=== PATIENT | male | born 1980 | race Caucasian/White ===

== ENCOUNTER 2021-03-01 22:30 | Emergency (ER) | payer MEDICAID ==
[~2021-03-01] VITALS: Ht 170.2 cm; Wt 72.7 kg
[2021-03-02 01:33] LABS: BASOPHILS # (AUTO) 0.1 X10'3 (0-0.2); BASOPHILS % (AUTO) 0.9 % (0-1); EOSINOPHILS # (AUTO) 0.3 X10'3 (0-0.9); EOSINOPHILS % (AUTO) 2.9 % (0-6); HEMATOCRIT 37.8 % (42.0-52.0); HEMOGLOBIN 13.3 g/dl (14.0-17.9); LYMPHOCYTES # (AUTO) 1.8 X10'3 (1.1-4.8); LYMPHOCYTES % (AUTO) 18.6 % (21-51); MEAN CORPUSCULAR HEMOGLOBIN 30.5 PG (27.0-31.0); MEAN CORPUSCULAR HGB CONC 35.1 g/dL (33.0-36.5); MEAN CORPUSCULAR VOLUME 86.7 FL (78-98); MEAN PLATELET VOLUME 7.9 FL (7.4-10.4); MONOCYTES # (AUTO) 0.9 X10'3 (0-0.9); MONOCYTES % (AUTO) 9.3 % (2-12); NEUTROPHILS # (AUTO) 6.6 X10'3 (1.8-7.7); NEUTROPHILS % (AUTO) 68.3 % (42-75); PLATELET COUNT 301 X10'3 (140-440); RED BLOOD COUNT 4.36 X10'6 (4.70-6.10); RED CELL DISTRIBUTION WIDTH 13.2 % (11.5-14.5); WHITE BLOOD COUNT 9.6 X10'3 (4.5-11.0)
[2021-03-02 01:53] LABS: ALANINE AMINOTRANSFERASE 26 U/L (12-78); ALBUMIN 3.6 G/DL (3.4-5.0); ALBUMIN/GLOBULIN RATIO 0.9 (1.1-1.5); ALKALINE PHOSPHATASE 137 IU/L (46-116); ANION GAP 8 (8-16); ASPARTATE AMINO TRANSFERASE 20 U/L (10-37); BILIRUBIN,TOTAL 0.4 MG/DL (0.1-1.0); BLOOD UREA NITROGEN 18 MG/DL (7-18); CALCIUM 8.7 MG/DL (8.5-10.1); CHLORIDE 104 MMOL/L (99-107); GLUCOSE 94 MG/DL (70-104); POTASSIUM 3.8 MMOL/L (3.5-5.1); SODIUM 139 MMOL/L (135-145); TOTAL CARBON DIOXIDE 26.6 MMOL/L (24-32); TOTAL PROTEIN 7.7 G/DL (6.4-8.2); eGFR > 90 ML/MIN
[2021-03-02 02:30] VITALS: BP 153/82
[2021-03-02] MEDS ORDERED: vancomycin/NS 1 GM ADD-VANTAGE 250 ML IV ONE (04:15)
[2021-03-02] MEDS ORDERED: piperacillin/tazo 3.375gm/50ml 50 ML IV ONE (04:15)
[2021-03-02] MEDS ORDERED: mag hydrox/Alum hydrox/simeth 30ml oral suspension PO PRN (05:35)
[2021-03-02] MEDS ORDERED: morphine 2 MG/ML inj. syringe IV PRN ×2 (05:35)
[2021-03-02] MEDS ORDERED: ondansetron/PF 4mg/2ml inj IV PRN (05:35)
[2021-03-02] MEDS ORDERED: dextrose 5%-1/2 normal saline 1,000 ML IV SCH (05:35)
[2021-03-02] MEDS ORDERED: magnesium hydroxide 30ml (MOM) UD suspension PO PRN (05:35)
[2021-03-02] MEDS ORDERED: NO HOME MEDS (07:23)
[2021-03-02] MEDS ORDERED: LIDOcaine 1% 30ml preserv. free vial IJ STA (07:41)
[2021-03-02] MEDS ORDERED: docusate sod 100mg capsule PO SCH (08:00)
[2021-03-02] MEDS ORDERED: SULF1TAB49 PO (09:35)
--- NOTE | 2021-03-02 10:12 | NUR ---
Patient has appointment at [facility] on 03-04, notified MD and Primary nurse, placed instructions in d/c orders for follow up
[2021-03-02] MEDS ORDERED: vancomycin/NS 1 GM ADD-VANTAGE 250 ML IV SCH (14:00)
[2021-03-02] MEDS ORDERED: CefTRIAXone/D5W-Rocephin 1gm 50 ML IV SCH (20:00)
== END 2021-03-02 11:00 | disposition still patient (30) ==
LOC: ER 22:30 → ED HOLD 03-02 05:40 → UNDOADMIN 03-02 05:40 → ER 03-02 11:00 → UNDODISIN 03-02 11:30
DX: L02.512 Cutaneous abscess of left hand (principal); F19.10 Other psychoactive substance abuse, uncomplicated; F17.210 Nicotine dependence, cigarettes, uncomplicated; F12.90 Cannabis use, unspecified, uncomplicated; F11.90 Opioid use, unspecified, uncomplicated; F15.90 Other stimulant use, unspecified, uncomplicated; Z79.899 Other long term (current) drug therapy; Z88.8 Allergy status to other drugs, medicaments and biological substances; Z59.00 Homelessness unspecified; Z72.89 Other problems related to lifestyle
CPT/HCPCS: 10060; 36415; 73130; 80053; 84145; 85025; 96365; 96366; 99284; J2543; 96374; 99285; G0378